=== PATIENT | male | born 1955 | race Hispanic/Latino ===

== ENCOUNTER 2019-06-15 11:13 | Emergency (ER) | payer BC ==
[2019-06-15 13:06] VITALS: BP 130/82
[2019-06-15] MEDS ORDERED: TETANUS,DIPH,PERTUSS(ACELL) VACCINE 0.5 ML SYRINGE IM ONE (13:07)
--- NOTE | 2019-06-15 13:07 | Event Note ---
ED Screening Note ED Screening Note: states he slipped and fell while getting out of the shower denies any CP or dizziness prior to fall states he has a laceration to the back of the head denies any blood thinners or aspirin No LOC +headache no vision changes no numbness or weakness PMHx HTN no allergies to meds unsure of last tetanus This initial assessment/diagnostic orders/clinical plan/treatment(s) is/are subject to change based on patients health status, clinical progression and re- assessment by fellow clinical providers in the ED. Further treatment and workup at subsequent clinical providers discretion. Patient/guardian urged not to elope from the ED as their condition may be serious if not clinically assessed and managed. Initial orders include: CT head, tetanus immunization
--- NOTE | 2019-06-15 13:40 | Emergency Department Report ---
ED Head Trauma HPI - General Chief complaint: Fall Stated complaint: FELL AND HIT HEAD Time Seen by Provider: 06/15/19 13:04 Source: patient Mode of arrival: Ambulatory Limitations: No Limitations - History of Present Illness Initial comments: 63-year-old male with history of hypertension presents with complaints of head injury x today. Patient states he had a slip and fall in the tub while taking a shower hitting his head on a pole resulting in a laceration to his scalp. He states he has a headache that is a 5/10 in severity, but denies any loss of consciousness, neck pain, vision changes, dizziness, numbness/tingling/weakness in his limbs, memory loss, confusion, difficulty with speech, or nausea/vomiting. Patient also denies being on any blood thinners. MD Complaint: head injury -: Sudden Mechanism of Injury: mechanical fall Location: parietal Loss of Consciousness: no Place: other Severity scale (0 -10): 5 Quality: aching Consistency: constant Associated Symptoms: denies other symptoms - Related Data Previous Rx's Medication Instructions Recorded Last Taken Type Ibuprofen [Motrin 600 MG tab] 600 mg PO Q8H PRN #15 tablet 06/15/19 Unknown Rx Mupirocin [Bactroban 2% OINT] 1 applic TP TID 7 Days #1 tube 06/15/19 Unknown Rx methOCARBAMOL [Robaxin TAB] 1,000 mg PO Q8H PRN #20 tab 06/15/19 Unknown Rx Allergies/Adverse reactions: Allergies Allergy/AdvReac Type Severity Reaction Status Date / Time No Known Allergies Allergy Unverified 06/15/19 11:17 ED Review of Systems ROS: Stated complaint: FELL AND HIT HEAD Other details as noted in HPI Eyes: denies: vision change Respiratory: denies: shortness of breath Cardiovascular: denies: chest pain Gastrointestinal: denies: abdominal pain, nausea, vomiting Genitourinary: denies: urgency, dysuria, frequency, hematuria Musculoskeletal: other (neck stiffness) Skin: denies: rash, lesions, change in color Neurological: headache. denies: weakness, numbness, paresthesias, confusion, abnormal gait, vertigo Hematological/Lymphatic: denies: easy bleeding ED Past Medical Hx - Past Medical History Previous Medical History?: No - Surgical History Past Surgical History?: Yes Additional Surgical History: Hernia repair - Social History Smoking Status: Never Smoker Substance Use Type: None - Medications Home Medications: Home Medications Medication Instructions Recorded Confirmed Last Taken Type Ibuprofen [Motrin 600 MG tab] 600 mg PO Q8H PRN #15 tablet 06/15/19 Unknown Rx Mupirocin [Bactroban 2% OINT] 1 applic TP TID 7 Days #1 tube 06/15/19 Unknown Rx methOCARBAMOL [Robaxin TAB] 1,000 mg PO Q8H PRN #20 tab 06/15/19 Unknown Rx ED Physical Exam - General Limitations: No Limitations General appearance: alert, in no apparent distress - Head Head exam: Present: normocephalic. Absent: atraumatic - Eye Eye exam: Present: normal appearance, PERRL, EOMI. Absent: scleral icterus - Neck Neck exam: Present: full ROM. Absent: tenderness - Respiratory Respiratory exam: Present: normal lung sounds bilaterally. Absent: respiratory distress - Cardiovascular Cardiovascular Exam: Present: regular rate, normal rhythm. Absent: systolic murmur, diastolic murmur, rubs, gallop - GI/Abdominal GI/Abdominal exam: Present: soft. Absent: tenderness - Extremities Exam Extremities exam: Present: normal inspection - Back Exam Back exam: Present: normal inspection, full ROM - Neurological Exam Neurological exam: Present: alert, oriented X3, CN II-XII intact, normal gait. Absent: motor sensory deficit - Expanded Neurological Exam Expanded Cerebellar function: Finger to Nose: Normal, Heel to Feng: Normal, Romberg: Nor mal Sensory exam: Upper Extremity Light Touch: Normal, Lower Extremity Light Touch: Normal Motor strength exam: RUE: 5, LUE: 5, RLE: 5, LLE: 5 - Psychiatric Psychiatric exam: Present: normal affect, normal mood - Skin Skin exam: Present: warm, dry, normal color. Absent: intact (Laceration noted to left midportion of scalp, minimal active bleeding, no obvious foreign bodies or swelling noted), rash ED Course Vital Signs 06/15/19 13:04 Temperature 98.4 F Pulse Rate 80 Respiratory 18 Rate Blood Pressure 130/82 O2 Sat by Pulse 96 Oximetry - Laceration /Wound Repair Head Wound Location: head Wound Length (cm): 5 Wound's Depth, Shape: linear Wound Explored: clean Irrigated w/ Saline (ccs): 60 Betadine Prep?: Yes Anesthesia: 1% Lidocaine Volume Anesthetic (ccs): 5 Progress: Minimal bleeding. Wound closed using 8 geoffrey. Patient tolerated procedure well without any immediate complications. - Radiology Data Radiology results: report reviewed . CT HEAD WITHOUT CONTRAST INDICATION : fell hit head, laceration to the scalp. TECHNIQUE: Axial imaging performed from the skull apex through the skull base without the use of contrast. Sagittal and coronal reformatted images. All CT scans at this location are performed usi ng CT dose reduction for ALARA by means of automated exposure control. COMPARISON: None FINDINGS: Parenchyma: No acute intracranial hemorrhage or parenchymal abnormality. Ventricles: Ventricles are normal in size and appear symmetric. Bones: No acute osseous abnormality. Sinuses: There is trace retained secretions in the left maxillary sinus. The remaining sinuses and mastoid air cells are adequately aerated. Soft tissues: Soft tissues including the orbits appear normal. IMPRESSION: No acute abnormality. - Medical Decision Making 63-year-old male patient here with complaints of left scalp laceration due to a slip and fall while in the shower. He denies any red flag symptoms or loss of consciousness. Neuro exam is normal. CT head is negative for acute findings. Laceration repaired using geoffrey. Vitals are normal and patient is well- appearing is stable for discharge home. Bactroban prescription given along with Robaxin for stiffness in the neck. Recommend follow-up with his primary care provider in 3 days. Discussed symptoms of concussion and signs and symptoms that should prompt immediate return to the emergency department. Patient verbalizes understanding. Critical care attestation.: If time is entered above; I have spent that time in minutes in the direct care of this critically ill patient, excluding procedure time. ED Disposition Clinical Impression: Head injury Qualifiers: Encounter type: initial encounter Qualified Code(s): S09.90XA - Unspecified injury of head, initial encounter Scalp laceration Qualifiers: Encounter type: initial encounter Qualified Code(s): S01.01XA - Laceration without foreign body of scalp, initial encounter Disposition: DC- TO HOME OR SELFCARE Is pt being admited?: No Condition: Stable Instructions: Laceration (ED), Minor Head Injury (ED) Prescriptions: Mupirocin [Bactroban 2% OINT] 1 applic TP TID 7 Days #1 tube Ibuprofen [Motrin 600 MG tab] 600 mg PO Q8H PRN #15 tablet PRN Reason: Pain methOCARBAMOL [Robaxin TAB] 1,000 mg PO Q8H PRN #20 tab PRN Reason: muscle tightness Referrals: PRIMARY CARE, [Referring] - 2-3 Days
[2019-06-15] MEDS ORDERED: LET TOPICAL (LIDOCAINE/EPINEPHRINE/TETRACAINE) 3 ML TP ONE (14:09)
--- NOTE | 2019-06-15 14:10 | Cat Scan Report ---
. CT HEAD WITHOUT CONTRAST INDICATION : fell hit head, laceration to the scalp. TECHNIQUE: Axial imaging performed from the skull apex through the skull base without the use of con trast. Sagittal and coronal reformatted images. All CT scans at this location are performed using C T dose reduction for ALARA by means of automated exposure control. COMPARISON: None FINDINGS: Parenchyma: No acute intracranial hemorrhage or parenchymal abnormality. Ventricles: Ventricles are normal in size and appear symmetric. Bones: No acute osseous abnormality. Sinuses: There is trace retained secretions in the left maxillary sinus. The remaining sinuses and m astoid air cells are adequately aerated. Soft tissues: Soft tissues including the orbits appear normal. IMPRESSION: No acute abnormality. Signer Name: Brando Burton Jr, MD Signed: 06/15/2019 2:05 PM Workstation Name: [id number]
[2019-06-15] MEDS ORDERED: IBUPROFEN 800 MG TAB PO ONE (14:11)
== END 2019-06-15 15:38 | disposition home or self-care (01) ==
LOC: ED 11:13
DX: S01.01XA Laceration without foreign body of scalp, initial encounter (principal); Z98.890 Other specified postprocedural states; X58.XXXA Exposure to other specified factors, initial encounter; Y93.89 Activity, other specified; Y92.89 Other specified places as the place of occurrence of the external cause; Y99.8 Other external cause status
CPT/HCPCS: 70450; 90471; 90715